=== PATIENT | male | born 2000 | race Caucasian/White ===

== ENCOUNTER 2024-01-12 14:03 | Outpatient (CLI) | payer BC, SELFPAY | END 2024-01-12 14:04 | disposition home or self-care (01) | PROVIDERS: PCP Family Medicine; Visit Provider Family Medicine | DX: K52.9 Noninfective gastroenteritis and colitis, unspecified (principal); R19.5 Other fecal abnormalities; E01.0 Iodine-deficiency related diffuse (endemic) goiter | CPT/HCPCS: 80053; 83516; 84443; 86140; 86231 ==